=== PATIENT | male | born 1960 | race Caucasian/White ===

== ENCOUNTER 2022-10-20 19:16 | Emergency (ER) | payer OTHER ==
[~2022-10-20] VITALS: Ht 175.3 cm; Wt 81.3 kg
[2022-10-20 20:45] VITALS: BP 126/78; PULSE 75; RESP 18; O2SAT 98
[2022-10-20] MEDS ORDERED: DIPH,PERTUSS(ACELL),TET VAC/PF 0.5 ML VIAL IM ONE (21:30)
[2022-10-20] MEDS ORDERED: LIDOCAINE HCL 1% 20 ML VIAL ONE (21:45)
[2022-10-20] MEDS ORDERED: AMOX1TAB16 PO (22:59)
[2022-10-20] MEDS ORDERED: IBUP-2070 PO (22:59)
== END 2022-10-20 23:11 | disposition home or self-care (01) ==
LOC: EDH 19:16 → EEVIPCON 19:16 → EDH 23:11
DX: M79.632 Pain in left forearm (principal); M25.532 Pain in left wrist; Z88.8 Allergy status to other drugs, medicaments and biological substances; W54.0XXA Bitten by dog, initial encounter; Y93.89 Activity, other specified; Y92.89 Other specified places as the place of occurrence of the external cause; Y99.8 Other external cause status
CPT/HCPCS: 12001; 73090; 73100; 73120; 90471; 90715